=== PATIENT | female | born 2000 | race Caucasian/White ===

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

== ENCOUNTER 2018-03-10 03:42 | Emergency (ER) | payer SELFPAY ==
[~2018-03-10] VITALS: Wt 62.6 kg
[~2018-03-10 03:42] MED LIST changes: +DIFLUCAN150 MG PO; +MACROBID100 M1 PO; +PYRIDIUM200 M1 PO
[2018-03-10] MEDS ORDERED: AZO CRANBERRY250 MG PO (03:45)
[2018-03-10 04:18] LABS: BILIRUBIN NEGATIVE (NEGATIVE); BLOOD TRACE-INTACT (NEGATIVE); CLARITY CLOUDY (CLEAR); COLOR ORANGE (YELLOW); GLUCOSE 1+ (NEGATIVE); KETONE 1+ (NEGATIVE); NITRITE POSITIVE (NEGATIVE); UROBILINOGEN >= 8.0 E.U./dl (0.2-1.0)
[2018-03-10 04:19] LABS: LEUKO ESTERASE 2+ (NEGATIVE)
[2018-03-10 04:26] LABS: EPITHELIAL CELLS 15-20
[2018-03-10 04:27] LABS: BACTERIA 1+; CALCIUM OXALATE CRYSTALS 1+; WBC 41-50 wbc/hpf (0-5)
[2018-03-10] MEDS ORDERED: KEFLEX500 M1 PO (04:53)
== END 2018-03-10 05:07 | disposition home or self-care (01) ==
LOC: ED 03:42
PROVIDERS: Student in an Organized Health Care Education/Training Program
DX: N39.0 Urinary tract infection, site not specified (principal); Z79.899 Other long term (current) drug therapy

== ENCOUNTER 2021-01-13 17:40 | Emergency (ER) | payer MEDICAID ==
[~2021-01-13] VITALS: Ht 157.4 cm; Wt 61.2 kg
[~2021-01-13 17:40] MED LIST changes: +AZO CRANBERRY250 MG PO; +KEFLEX500 M1 PO
[2021-01-13] MEDS ORDERED: PREDNISONE20 M1 PO (22:31)
[2021-01-13] MEDS ORDERED: PROVENTIL HFA6.7 GM INH (22:31)
== END 2021-01-13 22:46 | disposition home or self-care (01) ==
LOC: ED 17:40
DX: U07.1 COVID-19 (principal); Z79.899 Other long term (current) drug therapy